=== PATIENT | male | born 1975 | race Caucasian/White ===

== ENCOUNTER 2022-12-17 11:35 | Emergency (ER) | payer OTHER, SELFPAY ==
[2022-12-17 11:37] VITALS: BP 144/88; PULSE 84; RESP 14; TEMP 36.6; O2SAT 99; BMI 21.2
--- NOTE | 2022-12-17 12:15 | CT_ITS ---
STUDY: CT BRAIN WITHOUT CONTRAST REASON FOR EXAM: Male, 47 years old. Head trauma RADIATION DOSAGE (If Supplied By Facility): CTDIvol = ( 44.99 ) mGy, DLP = ( 812.98 ) mGycm TECHNIQUE: Transaxial CT imaging of the brain was performed without administration of intravenous contrast material. Individualized dose optimization techniques were used for this CT. COMPARISON: No relevant priors. FINDINGS: Normal soft tissue structures. Normal calvarium. Normal size ventricles and extra-axial spaces for the patient''s age. Normal white matter tracts of the cerebral hemispheres. Normal basal ganglia and thalami. Normal brainstem. Normal cerebellum. There is no intracranial hemorrhage. There are no findings of an acute ischemic infarction. Mucosal thickening of the ethmoid sinuses and maxillary sinuses. CT/Brain/Head without Contrast IMPRESSION: Normal unenhanced CT scan of the brain. Mucosal thickening of the ethmoids and maxillary sinus. Electronically Signed: Antony Aranda MD at 13:06 EDT ,
--- NOTE | 2022-12-17 12:15 | CT_ITS ---
STUDY: CT CERVICAL SPINE WITHOUT CONTRAST REASON FOR EXAM: Male, 47 years old. Trauma RADIATION DOSAGE (If Supplied By Facility): CTDIvol = ( 17.84 ) mGy, DLP = ( 315.08 ) mGycm TECHNIQUE: High resolution transaxial imaging was performed without contrast material. Sagittal and coronal images were reconstructed. Individualized dose optimization techniques were used for this CT. COMPARISON: None FINDINGS: Normal craniovertebral junction. Normal anterior atlantoaxial articulation. Normal odontoid process. Normal cervical lordosis. Normal vertebral bodies and posterior osseous elements. C2-3: Normal endplates. Normal disc height and morphology. Normal central canal and intervertebral neuroforamina. C3-4: Normal endplates. Normal disc height and morphology. Normal central canal and intervertebral neuroforamina. C4-5: Normal endplates. Normal disc height and morphology. Normal central canal and intervertebral neuroforamina. C5-6: Normal endplates. Normal disc height and morphology. Normal central canal and intervertebral neuroforamina. C6-7: Normal endplates. Normal disc height and morphology. Normal central canal and intervertebral neuroforamina. C7-T1: Normal endplates. Normal disc height and morphology. Normal central canal and intervertebral neuroforamina. Normal visualized soft tissue structures. CT/Spine Cervical without Contras IMPRESSION: Normal unenhanced CT examination of the cervical spine. Electronically Signed: Antony Aranda MD at 13:07 EDT ,
--- NOTE | 2022-12-17 12:19 | EDS_ITS ---
HPI History of Present Illness Chief Complaint: Laceration Detail of Chief Complaint: Hit in the head with a 30 pound piece of steel. Informant: patient Onset/Context/Timing Onset: Today Mechanism/Context: Blunt Injury Current Severity: Moderate Maximum Severity: Moderate Associated Symptoms Associated Symptoms: Negative for Parasthesias, Weakness, Loss of function, Inability to ambulate, Loss of consciousness or Amnesia Narrative Narrative: 47-year-old male history of reflux and hiatal hernia. Was moving a ladder today and a standard skin of the ladder fell about 10 feet struck him in the top of his head. He suggesting weighs about 30 to 40 pounds. Patient has a scalp laceration about an inch to 2 inches in length top of the scalp. Complaining of head pain and neck pain. Does not believe he lost conscious. Denies any other injuries. Tetanus Immunization: >10 years Prior similar symptoms: No Recent Illness/Hospitalization: No PFSH [facility] [place] Medical History Hiatal hernia with GERD Allergy/AdvReac Type Severity Reaction Status Date / Time No Known Allergies Allergy Verified 12/17/22 11:37 Social History Smoking Status: Current every day smoker tobacco type: cigarettes ROS ROS ED ROS Narrative Denies recent illness. Review of Systems ROS Unobtainable: Denies due to encephalopathy Constitutional Constitutional ED: Denies chills or fever(s) Eyes Eyes: Denies blurry vision ENT ENT ED: Denies ear pain Cardiovascular Cardiovascular: Denies chest pain or palpitations Respiratory/Chest Respiratory/Chest: Denies cough or dyspnea Gastrointestinal Gastrointestinal: Denies abdominal pain Genitourinary Genitourinary ED: Denies dysuria or hematuria Musculoskeletal Musculoskeletal: Denies arthralgias or back pain Integumentary Denies abscess or Abrasions Neurologic Neurologic: Reports headache(s) Psychiatric Psychiatric: Denies anxiety or depression Endocrine Endocrinology: Denies cold intolerance Hematologic/Lymphatic Hematologic/Lymphatic: Denies easy bleeding or easy bruising Allergic/Immunologic Allergic/Immunologic ED: Denies mouth swelling, tongue swelling or urticaria EXAM Physical Exam Narrative Exam Narrative: 47-year-old male vital signs stable afebrile. No distress. H EENT exam pupils are reactive light. Face no trauma nontender. Dentition intact. Top of his scalp there is a 1 to 2 inch linear laceration that is horizontal. Currently no active bleeding. Will need to be repaired. No significant hematoma. Tender to touch. Pupils round reactive light. TMs are normal. No hemotympanum. Neck he does have C-spine and paraspinal tenderness. Trachea midline. Back thoracic and lumbar spine are nontender. Lungs clear to auscultation. Chest wall and ribs nontender. Heart regular rate and rhythm no murmur rate about 80. Abdomen soft nontender. Moving all 4 extremities. Normal range of motion. Normal strength. Normal sensation. 5 and 5 technical director strength. Dorsi plantarflexion intact. Neurologically is awake and alert. GCS of 15. Const Vital Signs: 12/17/22 11:37 Temperature 98 F Temperature Source Temporal Pulse Rate 84 Respiratory Rate 14 Blood Pressure 144/88 H Blood Pressure Mean 106 Pulse Ox 99 Oxygen Delivery Method Room Air Positive well nourished and well developed; Negative for obese, cachectic, contractures or unkempt General Appearance ED: well developed and NAD; Negative for unkempt, cachectic or contractures Nutritional Appearance: Negative for cachectic or obese HEENT Reports TM's clear HEENT Narrative: Top of the scalp 1 to 2 inch horizontal laceration. No active bleeding. Will need repaired. trauma and tenderness; Negative for atraumatic Tympanic Membrane ED: Yes TM's clear Eyes PERRL and EOMs intact bilaterally General Eye ED: Negative for other Neck full ROM Neck Narrative: Scalp laceration. 1 to 2 inches. Horizontal. No active bleeding. No skin hematoma. Tender to touch. General: tenderness Chest Wall inspection of chest normal and palpation of chest normal Breast/Axilla Inspection: Negative for other Resp normal respiratory effort and clear to auscultation bilaterally Effort and Inspection: Negative for pain with movement Auscultation: rales, rhonchi and wheezes Cardio regular rhythm, S1 normal heart sound, S2 normal heart sound and no murmurs Jugular Venous Distention: Negative for other Palpation: Negative for palpable S3 Rate: regular rate; Negative for bradycardia or tachycardic Rhythm: Negative for abnormal rhythm GI normal to inspection, nondistended, normoactive bowel sounds, non-tender, non- distended and no masses Inspection: Negative for abdominal distention Auscultation: normoactive bowel sounds Palpation: soft; Negative for tender or guarding Back/Spine normal to inspection and no thoracic nor lumbar tenderness General Back: Negative for CVA tenderness Thoracic Spine / Upper Back: Negative for thoracic spinal tenderness Extremity normal to inspection and full ROM General Extremety ED: Negative for deformity, edema or tenderness General Extremity: Negative for deformity or edema Neuro oriented x3, CN's II-XII intact bilaterally, moves all extremities, no focal motor deficits and no sensory deficits noted Cadet Coma Scale: document GCS findings Spontaneous Obeys Commands Oriented 15 Sensorium / Orientation: alert, oriented to person, oriented to place and oriented to time; Negative for orientation impaired, lethargic or stuporous Motor Exam: strength 5/5 throughout Psych mental status grossly normal and thought process normal Appearance: Negative for unkempt Attitude: No agitated Mood & Affect: Negative for depressed, anxious or tearful Skin no rashes or lesions noted, no wounds, skin turgor normal and no jaundice Trauma: Negative for abrasion PROC Procedures Lacerations Scalp laceration repair:: Length: 2.5 in Depth: Sub Q Shape: Linear Prep: Shemanuel-Clens Laceration repair: Irrigated, Lidocaine with epi, Local and Skin sutures Number of Sutures/[place]: 5 Suture Information: Ethilon, Simple and 4-0 Comment: Top of scalp laceration. 2.5 inches. Local anesthetized with let and then lidocaine with epinephrine. Cleaned with Erica-Cleholly. Washed and irrigated with saline. Explored. Involve the skin and subcu tissue. No step-off. No foreign body. Closed using 5 simple interrupted 4-0 Ethilon sutures. Proper hemostasis and wound closure is obtained. Instructed on wound care. MDM MDM MDM Narrative Medical decision making narrative: 47-year-old male had a stand from a ladder that weighs 30 to 40 pounds fall about 10 feet striking the top of his head. No LOC but has significant headache and has neck pain. We will get a CAT scan of his head and neck. His tetanus will be updated. He has a laceration top of his scalp and will need to be repaired and explored. Patient does not want make this Worker's Comp. Repeat exam patient is doing well at 2:40 PM after I repaired his scalp laceration. He will be discharged home. Wound to be cleaned and dressed. He was instructed on wound care. Suture removal in 10 days. His CAT scan results. History & Record Review Discussion w/independent historian: Patient Additional record(s) reviewed:: No prior records Radiography Diagnostic Testing: Clinical Impression(s) from Imaging Studies Brain CT 12/17/22 12:15 IMPRESSION: Normal unenhanced CT scan of the brain. Mucosal thickening of the ethmoids and maxillary sinus. Electronically Signed: Antony Aranda MD at 13:06 EDT , Cervical Spine CT 12/17/22 12:15 IMPRESSION: Normal unenhanced CT examination of the cervical spine. Electronically Signed: Antony Aranda MD at 13:07 EDT , CAT scan of his brain and C-spine were unremarkable as read by the radiologist and reviewed by me. Discharge Plan Triage Chief Complaint: Laceration ED Provider: Gregory Cole Dx/Rx/DC Orders Clinical Impression: Head injury, Laceration of scalp Instructions: ED Head Injury (Adult), ED Laceration Scalp Stitches or [place] Primary Care Provider: Care Physician,No Primary Referrals: Jan Salmeron MD [[facility] - [employer]] - 10 Day for suture removal Care Physician,No Primary [Primary Care Provider] - Activity Restrictions/Additional Instructions: Keep the scalp laceration clean. Gently cleanse with soap and water. Apply antibiotic ointment. Stitches out in 10 days. Watch for any signs of infection. Do not be surprised if it has a little bit of oozing of blood or fluid. Motrin and or Tylenol for pain. Off work tomorrow. Your tetanus was updated and should be good for about 10 years. Disposition Disposition: Home, Self Care
[2022-12-17] MEDS: Lidocaine 1% /Epi 1:100 (20ml) 20 ML Vial 10 ML INFILT (12:22)
[2022-12-17] MEDS: Lidocaine/Epi/Tetracaine 50 ML 1 APPLIC TOPICAL (12:22)
[2022-12-17] MEDS: Diphth,Pertuss(Acell),Tet Vac 0.5 ML Vial IM (12:22)
== END 2022-12-17 14:54 | disposition home or self-care (01) ==
PROVIDERS: Emergency Provider Emergency Medicine; Visit Provider Emergency Medicine
DX: S01.01XA Laceration without foreign body of scalp, initial encounter (principal); F17.210 Nicotine dependence, cigarettes, uncomplicated; Z23 Encounter for immunization; X58.XXXA Exposure to other specified factors, initial encounter
CPT/HCPCS: 12001; 70450; 72125; 90471; 90715; 99283